=== PATIENT | female | born 1965 | race Caucasian/White ===

== ENCOUNTER 2019-09-21 16:34 | Outpatient (CLI) | payer OTHER, SELFPAY ==
--- NOTE | 2019-09-21 16:45 | MR_ITS ---
WS: [id number] MRI THORACIC SPINE without contrast HISTORY: Thoracic back pain COMPARISON: Thoracic spine radiographs 10/11/2018 TECHNIQUE: Multiplanar sequences are performed in sagittal and axial planes. Normal thoracic vertebral body alignment. Disc spaces and vertebral body heights are well-preserved. No signal abnormality within the cord or the vertebral bodies. Conus tapers normally at the L1-2 leve l. T1-2: Very shallow LEFT paracentral disc protrusion without stenosis. T2-3: Small posterior lateral osteophyte involving the facet joint without cord contact. Very small RIGHT paracentral disc protrusion or osteophyte. No cord contact. T3-4: Small RIGHT foraminal osteophyte without stenosis. T4-5: LEFT paracentral osteophyte with mild flattening and deformity of the LEFT lateral thecal sac. No significant stenosis at this time. T5-6: Mild facet arthritis. T6-7: Normal. T7-8: Normal. T8-9: Normal. T9-10: Mild bilateral facet arthritis without stenosis. T10-11: Mild facet arthritis without stenosis. T11-12: Mild facet arthritis without stenosis. Paraspinal soft tissues are normal. MR/MR thoracic spin wo con* [id number] IMPRESSION: 1. No significant central or foraminal stenosis. No fractures. 2. Small LEFT paracentral disc protrusions and/or osteophytes at T3-4 and T4-5 without cord contact. 3. Mild multilevel facet arthritis.
== END 2019-09-21 16:35 | disposition home or self-care (01) ==
LOC: RADSHAW 16:40
PROVIDERS: PCP Licensed Practical Nurse; Visit Provider Licensed Practical Nurse
DX: M51.24 Other intervertebral disc displacement, thoracic region (principal)
CPT/HCPCS: 72146

== ENCOUNTER → 2020-04-15 17:08 | Outpatient (BNVA) | payer OTHER, SELFPAY | PROVIDERS: PCP Nurse Practitioner Family; Visit Provider Nurse Practitioner Family | DX: F41.9 Anxiety disorder, unspecified (principal); F32.9 Major depressive disorder, single episode, unspecified; J30.9 Allergic rhinitis, unspecified; M79.7 Fibromyalgia; E78.2 Mixed hyperlipidemia; G47.00 Insomnia, unspecified; Z68.31 Body mass index [BMI] 31.0-31.9, adult; F17.211 Nicotine dependence, cigarettes, in remission | CPT/HCPCS: 80053; 84443; 85025 ==

== ENCOUNTER → 2021-11-12 09:30 | Outpatient (BNVA) | payer OTHER, SELFPAY | PROVIDERS: PCP Nurse Practitioner Family; Visit Provider Nurse Practitioner Family | DX: M54.50 Low back pain, unspecified (principal); M54.6 Pain in thoracic spine; M25.552 Pain in left hip; M25.512 Pain in left shoulder; R10.9 Unspecified abdominal pain | CPT/HCPCS: 81000 ==

== ENCOUNTER 2021-11-13 14:36 | Outpatient (CLI) | payer OTHER, SELFPAY ==
--- NOTE | 2021-11-13 14:58 | XR_ITS ---
WS: [email or web address] Exam: XR hip LT 2-3V wo/w pel* [id number] Date/Time of Exam: 11/13/2021 3:15 PM Reason For Exam: M25.552 - Pain in left hip Comparison 05/31/2013. Findings: No fractures or bone anomalies are noted. No unusual soft tissue masses or calcifications are seen. The bony elements of the hip are in adequate alignment. XR/XR hip LT 2-3V wo/w pel* [id number] IMPRESSION: Negative left hip. Tonnis classification: 0
--- NOTE | 2021-11-13 14:58 | XR_ITS ---
WS: [email or web address] Exam: XR shoulder LT min 2V* [id number] Date/Time of Exam: 11/13/2021 3:15 PM Reason For Exam: M25.512 - Pain in left shoulder No fracture or dislocation. Calcification along the humeral head which may indicate calcific tendinit is or bursitis. XR/XR shoulder LT min 2V* [id number] IMPRESSION: 1. No fracture or dislocation. 2. Soft tissue calcification along the humeral head suggesting calcific tendini tis and/or bursitis.
--- NOTE | 2021-11-13 14:58 | XR_ITS ---
WS: [email or web address] Exam: XR lumbar spine 2-3V* [id number] Date/Time of Exam: 11/13/2021 3:15 PM Reason For Exam: M54.50 - Low back pain, unspecified Comparison 07/24/2019. No acute fracture or dislocation. Degenerative vacuum disc at L5-S1. Posterior elements are intact. N o significant change. XR/XR lumbar spine 2-3V* [id number] IMPRESSION: 1. Degenerative disc changes at L5-S1. Facet arthropathy at L5-S1. 2. No fracture or malalignment.
--- NOTE | 2021-11-13 14:58 | XR_ITS ---
WS: [email or web address] Exam: XR thoracic spine 3V* [id number] Date/Time of Exam: 11/13/2021 3:15 PM Reason For Exam: M54.6 - Pain in thoracic spine Comparison 10/11/2018. No fracture or dislocation. Minimal spondylosis. No scoliosis. Normal paraspinal soft tissues. Osteop enia. XR/XR thoracic spine 3V* [id number] IMPRESSION: 1. No fracture or malalignment. Osteopenia.
== END 2021-11-13 14:37 | disposition home or self-care (01) ==
LOC: RAD 14:41
PROVIDERS: PCP Nurse Practitioner Family; Visit Provider Nurse Practitioner Family
DX: M25.552 Pain in left hip (principal); M54.6 Pain in thoracic spine; M25.512 Pain in left shoulder; M85.88 Other specified disorders of bone density and structure, other site; M47.817 Spondylosis without myelopathy or radiculopathy, lumbosacral region
CPT/HCPCS: 72072; 72100; 73030; 73502

== ENCOUNTER 2022-01-17 10:51 | Outpatient (CLI) | payer OTHER, SELFPAY ==
--- NOTE | 2022-01-17 10:15 | MR_ITS ---
WS: [email or web address] MRI THORACIC SPINE noncontrast. HISTORY: M54.6 - Pain in thoracic spine COMPARISON: 09/21/2019 TECHNIQUE: Multiplanar sequences are performed in sagittal and axial planes. Very slight increase in thoracic kyphosis. No acute fracture. There is a very small amount of edema w ithin the anterior inferior T12 vertebral body at the site of an osteophyte. No signal abnormality wi thin the cord. Conus tapers normally and ends near L2. T1-2: Normal. T2-3: Normal. T3-4: Mild LEFT foraminal disc protrusion similar to the prior study. T4-5: Small LEFT foraminal disc protrusion with slight contact on the cord. Slightly progressed sinc e the prior study. T5-6: Normal. T6-7: Normal. T7-8: Minimal disc bulge. T8-9: Normal. T9-10: Mild bilateral facet arthritis. T10-11: Normal. T11-12: Normal. Paravertebral soft tissues are negative. MR/MR thoracic spin wo con* [id number] IMPRESSION: 1. LEFT foraminal disc protrusions at T3-4 and T4-5 similar to the prior study with only mild increase of the T4-5 disc protrusion. The T4-5 disc protrusion now slightly contacts the thoracic cord. 2. No signal abnormality within the cord. No acute fracture.
--- NOTE | 2022-01-17 11:00 | MR_ITS ---
WS: [id number] MRI LUMBAR SPINE NONCONTRAST HISTORY: M54.50 - Low back pain, unspecified COMPARISON: 11/13/2021 radiographs and prior lumbar spine 07/24/2019 TECHNIQUE: Sagittal and axial multisequence imaging is submitted. Normal lumbar alignment with no compression fractures or marrow edema. Mild disc desiccation at L4-5 and L5-S1. Conus terminates normally at L1-2 disc level. L1-L2: Normal. L2-L3: Normal. L3-L4: Small amount of fluid in the facet joints. No stenosis. L4-L5: Mild annular disc bulging with mild osteophytic ridging. Shallow central and bilateral foramin al disc protrusions. There is encroachment upon the ventral thecal sac and very mild narrowing of the central canal and subarticular recesses. Similar but progressed since the prior examination. L5-S1: Mild annular disc bulging and osteophytic ridging. Very small RIGHT foraminal disc protrusion without significant contact on the L5 nerve root. There is very minimal disc contact on the RIGHT S1 nerve root but no displacement. Small bilateral foraminal osteophytes. Paravertebral soft tissues are negative. There is a very minimally visualized mass in the central pel vis. This is probably the urinary bladder. Potentially could be an enlarged fibroid uterus. MR/MR lumbar spine wo con* [id number] IMPRESSION: 1. No high-grade central or foraminal stenosis. 2. Small central and bilateral foraminal disc protrusions at L4-5 with minimal progression since the prior study. Only mild central and bilateral subarticula r recess stenosis. 3. Very minimal disc contact on the RIGHT S1 nerve root but no displacement or high-grade stenosis. Next and very small RIGHT foraminal disc protrusion at L5 -S1 without contact on the L5 nerve root.
== END 2022-01-17 10:52 | disposition home or self-care (01) ==
PROVIDERS: PCP Nurse Practitioner Family; Visit Provider Nurse Practitioner Family
DX: M54.50 Low back pain, unspecified (principal); M54.6 Pain in thoracic spine; M51.26 Other intervertebral disc displacement, lumbar region; M51.27 Other intervertebral disc displacement, lumbosacral region; M51.24 Other intervertebral disc displacement, thoracic region
CPT/HCPCS: 72146; 72148

== ENCOUNTER 2022-08-07 16:23 | Emergency (ER) | payer BC, SELFPAY ==
[2022-08-07 16:41] VITALS: BP 130/80; PULSE 119; RESP 16; TEMP 37.1; O2SAT 96; BMI 29.2
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
[2022-08-07] MEDS: dexamethasone 10 mg/mL INJ IM (18:13)
[2022-08-07] MEDS: cefTRIAXone 1,000 MG in lidocaine 1% 2.1 ML 1 MG IM (18:21)
== END 2022-08-07 18:23 | disposition home or self-care (01) ==
PROVIDERS: Emergency Provider Nurse Practitioner Family; PCP Nurse Practitioner Family
DX: J01.90 Acute sinusitis, unspecified (principal); H65.03 Acute serous otitis media, bilateral; E78.5 Hyperlipidemia, unspecified
CPT/HCPCS: 96372; 99284; J0696; J1100

== ENCOUNTER 2022-08-18 17:24 | Emergency (ER) | payer BC, SELFPAY ==
[2022-08-18 17:31] VITALS: BP 147/98; PULSE 75; RESP 16; TEMP 36.4; O2SAT 98
--- NOTE | 2022-08-18 18:48 | XRR_ITS ---
PROCEDURE INFORMATION: Exam: XR Left Finger(s) Exam date and time: 08/18/2022 7:16 PM Age: 57 years old Clinical indication: Pain; Finger(s); Left; Additional info: Laceration middle finger TECHNIQUE: Imaging protocol: Radiologic exam of the Left fingers. Views: Minimum 2 views. COMPARISON: No relevant prior studies available. FINDINGS: Bones/joints: Normal. Soft tissues: Normal. XR/XR finger LT min 2V [id number] IMPRESSION: No acute findings.
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
== END 2022-08-18 19:56 | disposition left against medical advice (07) ==
PROVIDERS: Emergency Provider Nurse Practitioner Family; PCP Nurse Practitioner Family
DX: S61.213A Laceration without foreign body of left middle finger without damage to nail, initial encounter (principal); W26.0XXA Contact with knife, initial encounter; E78.5 Hyperlipidemia, unspecified; Z53.21 Procedure and treatment not carried out due to patient leaving prior to being seen by health care provider
CPT/HCPCS: 73140; 99283

== ENCOUNTER 2024-04-16 06:00 | Outpatient (RCR) | payer OTHER, SELFPAY | END 2024-05-15 23:59 | disposition home or self-care (01) | LOC: TPT 06:00 | PROVIDERS: PCP Nurse Practitioner Family; Visit Provider Orthopaedic Surgery | DX: Z47.89 Encounter for other orthopedic aftercare (principal) | CPT/HCPCS: 97110; 97140 ==

== ENCOUNTER 2024-05-16 06:00 | Outpatient (RCR) | payer OTHER, SELFPAY | END 2024-06-15 23:59 | disposition home or self-care (01) | LOC: TPT 06:00 | PROVIDERS: PCP Nurse Practitioner Family; Visit Provider Orthopaedic Surgery | DX: Z47.89 Encounter for other orthopedic aftercare (principal) | CPT/HCPCS: 97110; 97140 ==

== ENCOUNTER 2024-06-16 06:00 | Outpatient (RCR) | payer OTHER, SELFPAY | END 2024-07-11 23:59 | disposition home or self-care (01) | LOC: TPT 06:00 | PROVIDERS: PCP Nurse Practitioner Family; Visit Provider Orthopaedic Surgery | DX: Z47.1 Aftercare following joint replacement surgery (principal); Z96.651 Presence of right artificial knee joint | CPT/HCPCS: 97110; 97140; 97164 ==

== ENCOUNTER → 2024-09-19 11:48 | Outpatient (BNVA) | payer BC, SELFPAY | PROVIDERS: PCP Nurse Practitioner Family; Visit Provider Nurse Practitioner Family | DX: J98.9 Respiratory disorder, unspecified (principal); R50.9 Fever, unspecified | CPT/HCPCS: 87400 ==